=== PATIENT | female | born 1930 | race Caucasian/White ===

== ENCOUNTER → 2016-08-17 | Outpatient (CLI) | payer MEDICARE | LOC: RAD 14:01 | PROVIDERS: ATTEND Internal Medicine | DX: Z78.0 Asymptomatic menopausal state (principal); M41.86 Other forms of scoliosis, lumbar region | CPT/HCPCS: 72110; 77081 ==

== ENCOUNTER 2016-10-31 15:15 | Outpatient (RCR) | payer MEDICARE ==
--- NOTE | 2016-10-26 11:13 | PT/OT/ST INITIAL EVALUATION ---
Department of Health and Human Services Form Approved [facility] Care Financing Administration OMB No. [id number] PLAN OF CARE/ASSESSMENT FOR OUTPATIENT REHABILITATION (Complete for Initial Claims Only) 1. PATIENT'S NAME Celina King 2. ACC # [id number] 3. [facility] [id number] 4. PROVIDER NO. [id number] 5. TYPE: PT 6. PRIOR HOSPITALIZATION NA 7. PRIMARY DX M41.9 scoliosis M17.9 knee osteoarthritis 8. SECONDARY DX NA 9. ONSET DATE Years 10. REFERRAL DATE 10/16/2016 11. SOC. DATE 10/23/2016 12. TIME OF EVAL 15:25 to 16:[address] Hall Daily 13. CHARGES/UNITS Evaluation 11266 1 unit therapeutic exercise 54966 14. G CODES [id number] Goal [id number] 15. PRIOR LEVEL OF FUNCTION; PERTINENT HISTORY (Prior therapy results, reason for referral.) S: Prior to therapy the patient consented to today's evaluation and treatment. The patient is an 86-year-old female referred to physical therapy by Rafael Hernandez to address scoliosis and bilateral knee osteoarthritis. Mechanism of injury: The patient notes she has had progressive knee valgus over the last several months of the right and has had variable knee pain. She also has low back pain present most of the time. She has had significant scoliosis and does feel like she is continuously loosing height. Prior level of function: The patient ambulates with the use of a narrow based cane, but does have a front-wheeled walker that she can use at home. She does use an all-wheeled walker for household ambulation. The patient does have 6 to 7 entry steps with the use of bilateral handrails, but she does require her family to stand by her secondary to balance. The patient does have an inability to lay flat secondary to her scoliosis and back pain. Current level of function: The patient does require increased assistance to enter and exit her home and limitation is limited to approximately 100 feet. Standing time is less than 10 minutes due to low back pain. Therapy History: The patient has not had any recent therapy for these specific issues, but did have therapy for her back several years ago that did assist her in improving her posture. Pain level: Current pain level is 7/10 in the low back. The pain is described as constant in the low back and less constant in the right knee. Aggravating factors: The pain is aggravated by movement in both the low back and knee. Relieving factors: It is relieved by using Voltaren gel and a heating pad. Diagnostic testing: The patient has had an x-ray of her right knee, which she reports reveals [id number], but due to her age, she will not be undergoing a knee replacement. She did have a recent DEXA scan, but reports were not reported. 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 History of scoliosis and irregular heart rhythm, and occasional racing heart rate. The patient also has a history of right rotator cuff repair, systole, and vein stripping. Current medications: The patient takes Tylenol or aspirin as needed, Lipitor, spironolactone, hydrochlorothiazide, tramadol and the other medications are not legible at this time. The patient did get a steroid injection in her right knee within the last 2 weeks, but is not sure it was helpful in decreasing her pain. Activity level: Not reported. Personal health rating: Reported as fair. Patient's Goal: The patient's goal is to decrease back pain and knee pain. 16. INITIAL ASSESSMENT/SAFETY PRECAUTIONS/MEDICAL COMPLICATIONS (Level of function at start of care. Be specific, use objective measures, list problems.) O: APPEARANCE, OBSERVATION AND GAIT: Observation of the patient's posture reveals significant scoliosis with a left to right curve. The right knee is significantly valgus with swelling medially. Left knee valgus was present, but is less than the right. The patient has minimal patellar movement with knee flexion and extension and the tibial condyles are prominent when the knee is flexed. The patient demonstrates right toe-out positioning in standing, VMO atrophy on the right and left foot pronation. PALPATION: The patient has tenderness to palpation of the right thoracic and lumbar paraspinals. Crepitus is noted in the right ankle. SPECIAL TESTS: The patient is able to sit upright for 2-1/2 minutes without back support prior to fatigue and posterior pelvic tilting. RANGE OF MOTION/FLEXIBILITY: Lumbar and thoracic range of motion are limited secondary to the presence of scoliosis. The patient is able to complete all functional lower extremity range of motion in hip flexion, knee flexion, and extension, but it is painful on the right. STRENGTH: Right shoulder flexion 4-/5 bilaterally. Shoulder abduction 4-/5 bilaterally. Shoulder internal rotation 4/5 bilaterally. Shoulder external 3+/5 bilaterally. Hip flexion on the right 4/5, left 4+/5. Knee extension right 4+/5, left 4+/5. Knee flexion right 4-/5, left 4+/5. Ankle dorsiflexion right 4/5, left 5/5. TODAY'S TREATMENT: Today's treatment consisted of educating the patient and her daughter, who is present with her this date, on the findings of the evaluation and recommended treatment plan. The physical therapist initiated a range of motion exercise and trunk stabilization program for the patient to complete at home and she was provided a copy of this. 17. INITIAL POC: (Specify procedures, modalities, short and group home goals) A: The patient presents to physical therapy with chronic low back pain as a result of degenerative changes as well as presence of scoliosis. The patient also has right knee pain that is progressively worsening. The patient demonstrates significant weakness in her bilateral upper and lower extremities as well as poor postural stabilization and would benefit from physical therapy to address these issues. PROGNOSIS: The patient does have a fair outcome in physical therapy due to her motivation to improve and good family support. OUTCOME ASSESSMENT: The patient scores a 29/50 on the Modified Oswestry low back pain disability questionnaire with [id number]. INFORMED CONSENT: The diagnosis, prognosis, treatment plan, risks and expected outcomes were discussed with this patient and she is agreeable to today's established plan of care. SHORT TERM GOALS X3 WEEKS: 1. The patient will report independence and compliance with her home exercise program. 2. The patient will be able to maintain neutral upright sitting for 5 minutes prior to fatigue to improve stability to her low back and support for her upper extremities and lower extremities. 3. The patient will demonstrate improved heel-to-toe gait pattern with use of a front-wheeled walker up to 250 feet to improve her functional community ambulation. 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 The Patient will improve her lower disability index by a minimum of 10% to demonstrate overall functional mobility. 2. The patient will report a minimum of 30% decrease in low back pain frequency and intensity, as well as right knee pain to improve her ability to complete functional transfers and functional standing tasks. 3. The patient will improve bilateral shoulder flexion, abduction and external rotation to be a minimum of 4/5 to improve scapular muscle control and shoulder support. 4. The patient will improve knee flexion on the right to be a minimum of 4/5, left 5/5 and bilateral knee extension to be improved to 5/5 to improve knee control. P: Plan to see this patient 2 times a week for 6 weeks to address significant low back pain and right knee pain with extensive weakness in the shoulder and lower extremity musculature, as well as trunk. Treatment will include modalities as needed including iontophoresis and ultrasound to decrease pain and muscle tightness. Manual therapy techniques will be utilized to decrease muscle tightness and improve flexibility, as well as decreased pain and will include myofascial release, soft tissue and deep tissue mobilizations. However, caution should be used with joint mobilization secondary to the patient's frailty. Therapeutic exercise will emphasize in improving pain free range of motion with progressive strengthening of the upper and lower extremities, as well as trunk stabilization. Gait and balance training will be utilized as well to improve posture and decrease patient's risk of falling. The patient was provided with a home exercise program and this will be progressed as needed. Thank you for the referral of this patient. 18. FREQUENCY 2 times per week 19. DURATION 6 weeks 20. FUNCTIONAL LEVEL (End of claim period) 21. PHYSICIAN SIGNATURE ? ON FILE OR ENTER HERE: 22. DATE: I certify the need for these services furnished under this plan of care and if for partial hospitalization. 23. CERTIFICATION FROM THROUGH [facility]-700
== END 2016-11-06 09:20 | disposition home or self-care (01) ==
LOC: PT 15:15
PROVIDERS: ATTEND Orthopaedic Surgery
DX: M17.0 Bilateral primary osteoarthritis of knee (principal); M41.9 Scoliosis, unspecified
CPT/HCPCS: 97110; 97162; G8981; G8982